=== PATIENT | male | born 1990 | race Two or more races ===

== ENCOUNTER 2023-02-05 21:24 | Inpatient (IN) | payer MEDICAID, OTHER ==
[~2023-02-05] VITALS: Ht 157.5 cm; Wt 102.5 kg
[2023-02-05 23:13] LABS: Basophils # (auto) 0.1 10 ^3/uL (0-0.2); Basophils % (auto) 1.2 % (0.0-2.0); Eosinophils # (auto) 0.2 10 ^3/uL (0-0.8); Eosinophils % (auto) 2.3 % (0.0-7.0); Hematocrit 28.6 % (41.0-53.0); Lymphocytes # (auto) 1.6 10 ^3/uL (0.4-5.4); Lymphocytes % (auto) 23.2 % (10.0-50.0); Mean Corpuscular Hemoglobin 30.1 pg (28.0-32.0); Mean Corpuscular Hgb Conc. 31.5 g/dL (32.0-36.0); Mean Corpuscular Volume 95.5 fL (80.0-100.0); Monocytes # (auto) 0.4 10 ^3/uL (0-1.3); Monocytes % (auto) 5.3 % (0.0-12.0); Neutrophils # (auto) 4.7 10 ^3/uL (1.6-8.6); Nucleated Red Blood Cells % 0.1 %; Red Cell Distribution Width 19.5 % (11.8-14.3)
[2023-02-05 23:31] LABS: Albumin 1.5 g/dL (3.4-5.0); Calcium 7.8 mg/dL (8.5-10.1)
[2023-02-05 23:34] LABS: Bilirubin, Total 1.1 mg/dL (0.2-1.0); Total Protein 6.3 g/dL (6.4-8.2)
[2023-02-06] MEDS ORDERED: ASPirin 325 MG TAB PO ONE (01:30)
[2023-02-06] MEDS ORDERED: FUROSEMIDE 100 MG/10ML VIAL IV ONE (01:45)
[2023-02-06] MEDS ORDERED: ALBUMIN 25% 100 ML IV ONE (01:45)
[2023-02-06] MEDS ORDERED: ONDANSETRON HCL 4 MG/2 ML VIAL IV ONE (03:15)
[2023-02-06] MEDS ORDERED: MORPHINE SULFATE 4 MG/ML SYR/VIAL IV ONE (03:15)
[2023-02-06] MEDS ORDERED: TEMAZEPAM 15 MG CAP PO ONE ×2 (05:15→22:15)
[2023-02-06] MEDS ORDERED: NITROGLYCERIN 0.4 MG SL TAB SL PRN (05:45)
[2023-02-06] MEDS ORDERED: MORPHINE SULFATE INJ 2 MG/ml SYRG IV PRN (05:45)
[2023-02-06] MEDS ORDERED: ALBUMIN 25% 100 ML IV SCH (06:00)
[2023-02-06 06:28] LABS: INR 1.24 (0.9-1.15); Partial Thromboplastin Time 32.1 SEC (24.5-34.5)
[2023-02-06] MEDS: FUROSEMIDE 40 MG/4 ML VIAL IV SCH ×2 (06:30→18:27)
[2023-02-06] MEDS ORDERED: ALBUMIN 5% 250 ML IV ONE (07:30)
[2023-02-06] MEDS ORDERED: LACTULOSE 20Gm/30ML SOLN PO SCH (10:00)
[2023-02-06] MEDS ORDERED: ASPirin 81 mg TAB PO SCH (10:00)
[2023-02-06] MEDS: SPIRONOLACTONE 25 MG TAB PO SCH (10:21)
[2023-02-06] MEDS: PANTOPRAZOLE 40 MG TAB PO SCH (10:21)
[2023-02-06] MEDS: SODIUM BICARBONATE 650 MG TAB PO SCH ×2 (10:21→23:20)
[2023-02-06] MEDS: ALBUMIN 25% 100 ML IV SCH ×2 (11:07→20:42)
[2023-02-06 12:36] LABS: Cholesterol 115 mg/dL (< 200); HDL Cholesterol 65 mg/dL (40-59); LDL Cholesterol 52 mg/dL (< 100); Triglycerides 71 mg/dL (< 150)
[2023-02-06] MEDS ORDERED: POTA-180 PO (13:19)
[2023-02-06] MEDS ORDERED: METO25TA93 PO (13:19)
[2023-02-06] MEDS: DOBUTamine 1000MCG/ML 250 ML IV SCH (14:26)
[2023-02-06 15:13] LABS: Urine Bacteria FEW /hpf (None Seen); Urine Blood 1+ /uL (Negative); Urine Budding Yeast MANY /hpf (None Seen); Urine Specific Gravity 1.024 (1.001-1.035); Urine WBC 61 /hpf (0 - 3); Urine WBC Clumps PRESENT /hpf (None Seen)
[2023-02-06 15:23] LABS: Sodium Urine 43 mmol/L (40-220)
[2023-02-06 15:34] LABS: Creatinine, Urine 361 mg/dL (30.0-125.0)
[2023-02-06] MEDS ORDERED: FURO40TA4 PO (21:31)
[2023-02-06] MEDS ORDERED: LOS25T PO (21:31)
[2023-02-06] MEDS ORDERED: EMPA1TAB PO (21:31)
[2023-02-07] VITALS (8 sets, daily range): BP systolic 98–134; BP diastolic 59–91
[2023-02-07] MEDS: ALBUMIN 25% 100 ML IV SCH (04:01)
[2023-02-07] MEDS: FUROSEMIDE 40 MG/4 ML VIAL IV SCH ×2 (06:26→17:15)
[2023-02-07] MEDS: SPIRONOLACTONE 25 MG TAB PO SCH (09:29)
[2023-02-07] MEDS: DOBUTamine 1000MCG/ML 250 ML IV SCH (09:29)
[2023-02-07] MEDS: traMADol HCL 50 MG TAB PO PRN (09:29)
[2023-02-07] MEDS: SODIUM BICARBONATE 650 MG TAB PO SCH ×2 (09:30→22:51)
[2023-02-07] MEDS: PANTOPRAZOLE 40 MG TAB PO SCH (09:30)
[2023-02-07] MEDS ORDERED: PATIENTS OWN MEDICATION (Metoprolol Succinate (Metoprolol Succinate Er) 1 TAB) PO SCH (10:00)
[2023-02-07] MEDS ORDERED: PATIENTS OWN MEDICATION (Potassium Chloride (Potassium Chloride ER) 1 TAB) PO SCH (10:00)
[2023-02-07 10:32] LABS: Hematocrit 21.7 % (41.0-53.0); Mean Corpuscular Volume 96.8 fL (80.0-100.0); Red Blood Cells 2.25 10^6/uL (4.5-5.90); White Blood Cell 5.1 10^3/uL (4.4-10.8)
[2023-02-07 10:52] LABS: Red Cell Distribution Width 20.2 % (11.8-14.3)
[2023-02-07 10:55] LABS: Hemoglobin 6.7 g/dL (13.5-17.5)
[2023-02-07 10:56] LABS: Basophils % (manual) 0 (0.0-2.0); Blast Cells 0; Metamyelocytes % 0; Myelocytes % 0; Promyelocytes % 0; Reactive Lymphocytes 0
[2023-02-07 11:41] LABS: Potassium 5.5 mmol/L (3.5-5.1)
[2023-02-07 11:48] LABS: Albumin 2.6 g/dL (3.4-5.0); BUN/Creatinine Ratio 15.9 (10.0-20.0); Calcium 7.7 mg/dL (8.5-10.1)
[2023-02-07 11:51] LABS: Bilirubin, Total 1.1 mg/dL (0.2-1.0); Phosphorus 7.2 mg/dL (2.5-4.90); Total Protein 5.6 g/dL (6.4-8.2)
[2023-02-07 12:37] LABS: Band Neutrophils % (manual) 3; Eosinophils % (manual) 4 (0-7); Lymphocytes % (manual) 29 (10.0-50.0); Monocytes % (manual) 3 (0-12)
[2023-02-07] MEDS: MIDODRINE HCL 10 MG TAB PO SCH (17:15)
[2023-02-07] MEDS: ONDANSETRON HCL 4 MG/2 ML VIAL IV PRN ×2 (19:03→23:50)
[2023-02-07] MEDS: CARVEDILOL 3.125 MG TAB PO SCH (22:52)
[2023-02-07] MEDS: OCTREOTIDE ACETATE 100 MCG/ML VL SUBCUT SCH (22:53)
[2023-02-08] MEDS ORDERED: TEMAZEPAM 15 MG CAP PO ONE (00:15)
[2023-02-08 03:38] VITALS: BP 119/61
[2023-02-08] MEDS: DOBUTamine 1000MCG/ML 250 ML IV SCH (03:38)
[2023-02-08] MEDS: MIDODRINE HCL 10 MG TAB PO SCH ×3 (06:00→17:31)
[2023-02-08] MEDS: OCTREOTIDE ACETATE 100 MCG/ML VL SUBCUT SCH ×3 (06:03→21:45)
[2023-02-08] MEDS: FUROSEMIDE 40 MG/4 ML VIAL IV SCH ×2 (06:03→17:31)
[2023-02-08 06:05] LABS: Basophils # (auto) 0 10 ^3/uL (0-0.2); Hemoglobin 7.7 g/dL (13.5-17.5); Lymphocytes # (auto) 1.1 10 ^3/uL (0.4-5.4); Mean Corpuscular Volume 94.5 fL (80.0-100.0); Monocytes # (auto) 0.3 10 ^3/uL (0-1.3); White Blood Cell 4.6 10^3/uL (4.4-10.8)
[2023-02-08 06:08] LABS: Basophils % (auto) 0.6 % (0.0-2.0); Eosinophils # (auto) 0.1 10 ^3/uL (0-0.8); Hematocrit 23.8 % (41.0-53.0); Lymphocytes % (auto) 23.6 % (10.0-50.0); Mean Corpuscular Hemoglobin 30.5 pg (28.0-32.0); Mean Corpuscular Hgb Conc. 32.3 g/dL (32.0-36.0); Monocytes % (auto) 6.7 % (0.0-12.0); Neutrophils % (auto) 66.1 % (37.0-80.0); Nucleated Red Blood Cells % 0.6 %; Red Blood Cells 2.52 10^6/uL (4.5-5.90); Red Cell Distribution Width 18.6 % (11.8-14.3)
[2023-02-08 06:22] LABS: BUN/Creatinine Ratio 16.4 (10.0-20.0); Calcium 7.8 mg/dL (8.5-10.1)
[2023-02-08] MEDS ORDERED: DEXTROSE (50%) 50ML SYRG IV ONE (07:00)
[2023-02-08] MEDS ORDERED: ALBUTEROL SULF 2.5 MG/0.5ML(0.5%) NEB SOLN NEB ONE (07:00)
[2023-02-08] MEDS ORDERED: CALCIUM GLUC 1,000mg/50ml-NS 50 ML IV ONE ×2 (07:00→09:45)
[2023-02-08] MEDS ORDERED: InsuLIN REG 1unit/0.01ml Soln (100units/ml) IV ONE (07:00)
[2023-02-08] MEDS ORDERED: SODIUM ZIRCONIUM CYCL 10 GM PAK PO SCH (07:00)
[2023-02-08] MEDS ORDERED: SODIUM BICARBONATE 8.4 % INJ 50ML VIAL IV ONE (07:00)
[2023-02-08] MEDS ORDERED: SODIUM ZIRCONIUM CYCL 10 GM PAK PO ONE ×2 (07:15→09:45)
[2023-02-08 09:00] VITALS: BP 121/76
[2023-02-08] MEDS: PANTOPRAZOLE 40 MG TAB PO SCH (09:25)
[2023-02-08] MEDS: CARVEDILOL 3.125 MG TAB PO SCH ×2 (09:26→21:47)
[2023-02-08] MEDS: SODIUM BICARBONATE 650 MG TAB PO SCH ×2 (09:26→21:47)
[2023-02-08 13:21] VITALS: BP 116/78
[2023-02-08 14:49] LABS: Hepatitis C Antibody Negative (Negative)
[2023-02-08] MEDS ORDERED: SODIUM CHLORIDE 0.9% 500 ML IV ONE (15:00)
[2023-02-08] MEDS ORDERED: LACTULOSE 20Gm/30ML SOLN PO ONE (15:45)
[2023-02-08 17:00] VITALS: BP 122/78
[2023-02-08 22:00] VITALS: BP 155/96
[2023-02-08 23:00] VITALS: BP 123/76
[2023-02-09] MEDS: traMADol HCL 50 MG TAB PO PRN (00:14)
[2023-02-09] MEDS: ONDANSETRON HCL 4 MG/2 ML VIAL IV PRN ×2 (00:20→08:28)
[2023-02-09 04:22] VITALS: BP 129/96
[2023-02-09] MEDS: OCTREOTIDE ACETATE 100 MCG/ML VL SUBCUT SCH ×3 (05:43→23:17)
[2023-02-09] MEDS: MIDODRINE HCL 10 MG TAB PO SCH ×3 (05:45→18:00)
[2023-02-09] MEDS: FUROSEMIDE 40 MG/4 ML VIAL IV SCH ×2 (05:45→18:45)
[2023-02-09 06:47] LABS: Basophils # (auto) 0.1 10 ^3/uL (0-0.2); Eosinophils # (auto) 0.2 10 ^3/uL (0-0.8); Lymphocytes # (auto) 1.1 10 ^3/uL (0.4-5.4); Mean Corpuscular Hgb Conc. 32.3 g/dL (32.0-36.0); Monocytes # (auto) 0.4 10 ^3/uL (0-1.3)
[2023-02-09 06:51] LABS: Basophils % (auto) 1.2 % (0.0-2.0); Eosinophils % (auto) 4.6 % (0.0-7.0); Hematocrit 25.5 % (41.0-53.0); Hemoglobin 8.3 g/dL (13.5-17.5); Lymphocytes % (auto) 24.3 % (10.0-50.0); Mean Corpuscular Hemoglobin 30.3 pg (28.0-32.0); Mean Corpuscular Volume 93.9 fL (80.0-100.0); Monocytes % (auto) 7.7 % (0.0-12.0); Neutrophils # (auto) 2.9 10 ^3/uL (1.6-8.6); Neutrophils % (auto) 62.2 % (37.0-80.0); Nucleated Red Blood Cells % 0.6 %; Red Blood Cells 2.72 10^6/uL (4.5-5.90); Red Cell Distribution Width 19.5 % (11.8-14.3); White Blood Cell 4.7 10^3/uL (4.4-10.8)
[2023-02-09 07:18] LABS: Potassium 5.3 mmol/L (3.5-5.1)
[2023-02-09 07:23] LABS: BUN/Creatinine Ratio 16.8 (10.0-20.0); Calcium 7.9 mg/dL (8.5-10.1)
[2023-02-09 08:00] VITALS: BP 119/81
[2023-02-09 08:38] VITALS: BP 119/21
[2023-02-09] MEDS: SODIUM BICARBONATE 650 MG TAB PO SCH ×2 (08:48→22:59)
[2023-02-09] MEDS: PANTOPRAZOLE 40 MG TAB PO SCH (08:48)
[2023-02-09] MEDS: CARVEDILOL 3.125 MG TAB PO SCH (09:18)
[2023-02-09] MEDS: SODIUM ZIRCONIUM CYCL 10 GM PAK PO SCH ×3 (09:26→22:00)
[2023-02-09] MEDS: LACTULOSE 20Gm/30ML SOLN PO SCH ×2 (12:20→18:00)
[2023-02-09 14:12] VITALS: BP 120/80
[2023-02-09] MEDS ORDERED: GLUCAGON EMERG KIT 1mg/1ml IV ONE (16:15)
[2023-02-09 17:07] VITALS: BP 141/105
[2023-02-09] MEDS ORDERED: ALBUMIN 25% 50 ML IV ONE (19:30)
[2023-02-09 22:00] VITALS: BP 155/96
[2023-02-10] MEDS ORDERED: TEMAZEPAM 15 MG CAP PO ONE (00:45)
[2023-02-10 05:18] VITALS: BP 122/82
[2023-02-10] MEDS: MIDODRINE HCL 10 MG TAB PO SCH ×3 (06:00→18:00)
[2023-02-10] MEDS: SODIUM ZIRCONIUM CYCL 10 GM PAK PO SCH (06:00)
[2023-02-10] MEDS: FUROSEMIDE 40 MG/4 ML VIAL IV SCH ×2 (06:17→18:05)
[2023-02-10] MEDS: LACTULOSE 20Gm/30ML SOLN PO SCH ×4 (06:17→18:04)
[2023-02-10] MEDS: OCTREOTIDE ACETATE 100 MCG/ML VL SUBCUT SCH ×3 (06:28→21:45)
[2023-02-10 08:00] VITALS: BP 132/85
[2023-02-10 08:21] VITALS: BP 132/85
[2023-02-10] MEDS: SODIUM BICARBONATE 650 MG TAB PO SCH ×2 (09:05→21:46)
[2023-02-10] MEDS: ONDANSETRON HCL 4 MG/2 ML VIAL IV PRN (09:05)
[2023-02-10] MEDS: PANTOPRAZOLE 40 MG TAB PO SCH (09:05)
[2023-02-10 09:13] LABS: Eosinophils # (auto) 0.3 10 ^3/uL (0-0.8); Hemoglobin 8.3 g/dL (13.5-17.5); Monocytes # (auto) 0.5 10 ^3/uL (0-1.3); White Blood Cell 5.2 10^3/uL (4.4-10.8)
[2023-02-10 09:14] LABS: Basophils # (auto) 0 10 ^3/uL (0-0.2); Basophils % (auto) 0.5 % (0.0-2.0); Eosinophils % (auto) 5.9 % (0.0-7.0); Hematocrit 26.1 % (41.0-53.0); Lymphocytes # (auto) 1.3 10 ^3/uL (0.4-5.4); Lymphocytes % (auto) 25.7 % (10.0-50.0); Mean Corpuscular Hemoglobin 30.3 pg (28.0-32.0); Mean Corpuscular Volume 94.7 fL (80.0-100.0); Monocytes % (auto) 10.4 % (0.0-12.0); Neutrophils % (auto) 57.5 % (37.0-80.0); Nucleated Red Blood Cells % 0.3 %; Red Blood Cells 2.76 10^6/uL (4.5-5.90); Red Cell Distribution Width 19.8 % (11.8-14.3)
[2023-02-10 09:24] LABS: BUN/Creatinine Ratio 18.6 (10.0-20.0); Calcium 7.6 mg/dL (8.5-10.1); Magnesium 1.8 mg/dL (1.6-2.6); Potassium 4.3 mmol/L (3.5-5.1)
[2023-02-10] MEDS: ALPRAZolam 0.25 MG TAB PO PRN ×2 (10:56→21:46)
[2023-02-10 12:54] VITALS: BP 122/86
[2023-02-10] MEDS: ALBUTEROL SULF 2.5 MG/0.5ML(0.5%) NEB SOLN NEB PRN (16:36)
[2023-02-10 17:00] VITALS: BP 145/99
[2023-02-10 22:00] VITALS: BP 151/89
[2023-02-11] MEDS: ALBUTEROL SULF 2.5 MG/0.5ML(0.5%) NEB SOLN NEB PRN ×2 (01:10→22:56)
[2023-02-11 04:26] VITALS: BP 151/89
[2023-02-11 05:00] VITALS: BP 155/97
[2023-02-11] MEDS: MIDODRINE HCL 10 MG TAB PO SCH ×3 (05:07→18:23)
[2023-02-11 05:18] LABS: Basophils # (auto) 0.1 10 ^3/uL (0-0.2); Basophils % (auto) 1.1 % (0.0-2.0); Eosinophils # (auto) 0.4 10 ^3/uL (0-0.8); Eosinophils % (auto) 8.6 % (0.0-7.0); Lymphocytes # (auto) 1.5 10 ^3/uL (0.4-5.4); Lymphocytes % (auto) 30.1 % (10.0-50.0); Mean Corpuscular Hemoglobin 30.5 pg (28.0-32.0); Mean Corpuscular Hgb Conc. 33.4 g/dL (32.0-36.0); Mean Corpuscular Volume 91.3 fL (80.0-100.0); Monocytes # (auto) 0.3 10 ^3/uL (0-1.3); Monocytes % (auto) 6.6 % (0.0-12.0); Neutrophils # (auto) 2.6 10 ^3/uL (1.6-8.6); Neutrophils % (auto) 53.6 % (37.0-80.0); Nucleated Red Blood Cells % 0.1 %; Red Blood Cells 2.96 10^6/uL (4.5-5.90); Red Cell Distribution Width 18.4 % (11.8-14.3); White Blood Cell 4.8 10^3/uL (4.4-10.8)
[2023-02-11] MEDS: OCTREOTIDE ACETATE 100 MCG/ML VL SUBCUT SCH ×3 (05:26→22:05)
[2023-02-11] MEDS: FUROSEMIDE 40 MG/4 ML VIAL IV SCH ×2 (05:26→18:22)
[2023-02-11] MEDS: LACTULOSE 20Gm/30ML SOLN PO SCH ×5 (05:26→23:24)
[2023-02-11 05:29] LABS: Potassium 3.7 mmol/L (3.5-5.1)
[2023-02-11 05:36] LABS: BUN/Creatinine Ratio 20.7 (10.0-20.0); Calcium 7.9 mg/dL (8.5-10.1)
[2023-02-11 08:51] VITALS: BP 129/77
[2023-02-11] MEDS: PANTOPRAZOLE 40 MG TAB PO SCH (10:59)
[2023-02-11] MEDS: SODIUM BICARBONATE 650 MG TAB PO SCH ×2 (11:01→22:05)
[2023-02-11 13:00] VITALS: BP 138/91
[2023-02-11 17:00] VITALS: BP 153/92
[2023-02-11 22:00] VITALS: BP 134/80
[2023-02-11] MEDS: ALPRAZolam 0.25 MG TAB PO PRN (22:04)
[2023-02-11] MEDS: TEMAZEPAM 15 MG CAP PO PRN (23:24)
[2023-02-12 05:00] VITALS: BP 113/72
[2023-02-12] MEDS: FUROSEMIDE 40 MG/4 ML VIAL IV SCH (05:27)
[2023-02-12] MEDS: LACTULOSE 20Gm/30ML SOLN PO SCH ×3 (05:27→17:47)
[2023-02-12] MEDS: MIDODRINE HCL 10 MG TAB PO SCH ×3 (05:27→17:47)
[2023-02-12] MEDS: OCTREOTIDE ACETATE 100 MCG/ML VL SUBCUT SCH ×3 (05:28→21:08)
[2023-02-12 06:14] LABS: Basophils # (auto) 0.1 10 ^3/uL (0-0.2); Basophils % (auto) 1.1 % (0.0-2.0); Eosinophils # (auto) 0.4 10 ^3/uL (0-0.8); Eosinophils % (auto) 7.9 % (0.0-7.0); Hematocrit 25.7 % (41.0-53.0); Hemoglobin 8.6 g/dL (13.5-17.5); Lymphocytes # (auto) 1.4 10 ^3/uL (0.4-5.4); Lymphocytes % (auto) 28.8 % (10.0-50.0); Mean Corpuscular Hemoglobin 30.5 pg (28.0-32.0); Mean Corpuscular Hgb Conc. 33.4 g/dL (32.0-36.0); Mean Corpuscular Volume 91.3 fL (80.0-100.0); Monocytes # (auto) 0.3 10 ^3/uL (0-1.3); Monocytes % (auto) 6.2 % (0.0-12.0); Neutrophils # (auto) 2.8 10 ^3/uL (1.6-8.6); Nucleated Red Blood Cells % 0.1 %; Red Blood Cells 2.82 10^6/uL (4.5-5.90); Red Cell Distribution Width 18.8 % (11.8-14.3)
[2023-02-12 06:29] LABS: Potassium 4.1 mmol/L (3.5-5.1)
[2023-02-12 06:41] LABS: Albumin 2.2 g/dL (3.4-5.0); BUN/Creatinine Ratio 27.2 (10.0-20.0); Bilirubin, Total 1.3 mg/dL (0.2-1.0); Calcium 7.4 mg/dL (8.5-10.1); Magnesium 1.5 mg/dL (1.6-2.6)
[2023-02-12 09:00] VITALS: BP 114/68
[2023-02-12] MEDS: PANTOPRAZOLE 40 MG TAB PO SCH (10:21)
[2023-02-12] MEDS: SODIUM BICARBONATE 650 MG TAB PO SCH ×2 (10:21→21:07)
[2023-02-12 13:00] VITALS: BP 140/98
[2023-02-12 17:00] VITALS: BP 125/73
[2023-02-12] MEDS: FUROSEMIDE 20 MG/2 ML VIAL IV SCH (17:49)
[2023-02-12] MEDS: ALBUTEROL SULF 2.5 MG/0.5ML(0.5%) NEB SOLN NEB PRN (19:07)
[2023-02-12 22:00] VITALS: BP 147/86
[2023-02-13] MEDS: LACTULOSE 20Gm/30ML SOLN PO SCH ×3 (00:02→12:40)
[2023-02-13] MEDS: TEMAZEPAM 15 MG CAP PO PRN (00:09)
[2023-02-13] MEDS: ALPRAZolam 0.25 MG TAB PO PRN (03:45)
[2023-02-13] MEDS ORDERED: diphenhdrAMINE HCL 50 MG/1 ML VL IV PRN (04:15)
[2023-02-13] MEDS: ALBUTEROL SULF 2.5 MG/0.5ML(0.5%) NEB SOLN NEB PRN ×2 (04:27→11:46)
[2023-02-13 05:00] VITALS: BP 133/81
[2023-02-13] MEDS: FUROSEMIDE 20 MG/2 ML VIAL IV SCH (05:31)
[2023-02-13] MEDS: OCTREOTIDE ACETATE 100 MCG/ML VL SUBCUT SCH ×2 (05:32→16:35)
[2023-02-13] MEDS: MIDODRINE HCL 10 MG TAB PO SCH ×2 (05:52→12:40)
[2023-02-13 06:39] LABS: Anion Gap 8 (5-15); BUN/Creatinine Ratio 30.2 (10.0-20.0); Blood Urea Nitrogen 42 mg/dL (7-18); Calcium 7.2 mg/dL (8.5-10.1); Carbon Dioxide 15 mmol/L (21-32); Chloride 119 mmol/L (98-107); GFR African American 76 mL/min; GFR Non-African American 63 mL/min; Glucose 101 mg/dL (74-106); Potassium 3.9 mmol/L (3.5-5.1); Sodium 142 mmol/L (136-145)
[2023-02-13 08:30] VITALS: BP 131/89
[2023-02-13] MEDS: SODIUM BICARBONATE 650 MG TAB PO SCH (09:00)
[2023-02-13] MEDS: PANTOPRAZOLE 40 MG TAB PO SCH (09:00)
[2023-02-13 09:16] VITALS: BP 131/89
[2023-02-13] MEDS ORDERED: PANT40TA2 PO (12:29)
[2023-02-13] MEDS ORDERED: LACT10PA2 PO (12:29)
[2023-02-13 15:10] VITALS: BP 139/88
== END 2023-02-13 18:28 | disposition home or self-care (01) | DRG 280 ==
LOC: EDBD 21:24 → ER 21:28 → TELE 02-06 05:51 → TELE-WESTW 02-06 20:04
PROVIDERS: ADMIT Nurse Practitioner; ATTEND Internal Medicine Geriatric Medicine
PROC: 30233N1 Transfusion of Nonautologous Red Blood Cells into Peripheral Vein, Percutaneous Approach (ICD-10-PCS; principal; 2023-02-07)
DX: K70.31 Alcoholic cirrhosis of liver with ascites (principal); K70.40 Alcoholic hepatic failure without coma; N17.0 Acute kidney failure with tubular necrosis; K76.7 Hepatorenal syndrome; D61.818 Other pancytopenia; I31.39 Other pericardial effusion (noninflammatory); E43 Unspecified severe protein-calorie malnutrition; I50.43 Acute on chronic combined systolic (congestive) and diastolic (congestive) heart failure; D68.9 Coagulation defect, unspecified; E83.51 Hypocalcemia; I13.0 Hypertensive heart and chronic kidney disease with heart failure and stage 1 through stage 4 chronic kidney disease, or unspecified chronic kidney disease; E88.09 Other disorders of plasma-protein metabolism, not elsewhere classified; I21.A1 Myocardial infarction type 2; I42.9 Cardiomyopathy, unspecified; J45.909 Unspecified asthma, uncomplicated; E66.9 Obesity, unspecified; N18.32 Chronic kidney disease, stage 3b; K80.20 Calculus of gallbladder without cholecystitis without obstruction; D64.9 Anemia, unspecified; F19.10 Other psychoactive substance abuse, uncomplicated; E87.5 Hyperkalemia; F41.9 Anxiety disorder, unspecified; G47.00 Insomnia, unspecified; K59.00 Constipation, unspecified; K76.82 Hepatic encephalopathy; N17.9 Acute kidney failure, unspecified; Z68.28 Body mass index [BMI] 28.0-28.9, adult
CPT/HCPCS: 36415; 71045; 74176; 76705; 80048; 80053; 80061; 81001; 82140; 82570; 82962; 83036; 83735; 83880; 84100; 84156; 84300; 84443; 84484; 85007; 85025; 85027; 85379; 85610; 85730; 86803; 86850; 86900; 86901; 86920; 87340; 93005; 93306; 94640; 96365; 96366; 96375; 96376; 97110; 97116; 97163; 97530; 99291; G0378; J1815; J2405; P9047